=== PATIENT | male | born 1970 | race Asian ===

== ENCOUNTER 2020-08-12 05:23 | Inpatient (IN) | payer OTHER ==
[~2020-08-12] VITALS: Ht 172.7 cm; Wt 79.4 kg
[2020-08-12] VITALS (18 sets, daily range): BP systolic 123–179; BP diastolic 70–109
[~2020-08-12 05:23] MED LIST: METFORMIN HCL1000 M1 ORAL
[2020-08-12] MEDS ORDERED: Vancomycin 1gm vial IVPB ONE (06:35)
[2020-08-12] MEDS ORDERED: Thrombin 5000 units TOPIC ONE (06:35)
[2020-08-12] MEDS ORDERED: Gelfoam Size TOPIC ONE (06:35)
[2020-08-12] MEDS ORDERED: Bacitracin 50000 Units Vial ONE (06:35)
[2020-08-12] MEDS ORDERED: Rocuronium Bromide 50mg/5ml Inj IV ONE ×2 (06:38→07:00)
[2020-08-12] MEDS ORDERED: NS Irrig 1000ml IRRIG ONE (06:45)
[2020-08-12] MEDS ORDERED: Lidocaine 1% MPF 10mg/ml 5ml ONE (06:58)
[2020-08-12] MEDS ORDERED: Sodium Chloride 10ml vial INJ ONE (06:58)
[2020-08-12] MEDS ORDERED: Midazolam 2mg/2ml Inj IVP PRN (07:00)
[2020-08-12] MEDS ORDERED: Sterile Water Irrig 1000ml IRRIG ONE (07:00)
[2020-08-12] MEDS ORDERED: fentaNYL 100 mcg/2 mL IV PRN (07:00)
[2020-08-12] MEDS ORDERED: Labetalol 5mg/ml 20ml vial IV PRN (07:00)
[2020-08-12] MEDS ORDERED: Atropine Sulfate 0.4mg/ml inj IVP PRN (07:00)
[2020-08-12] MEDS ORDERED: Ketorolac 30mg Inj IV PRN ×2 (07:00)
[2020-08-12] MEDS ORDERED: HYDROcodone/Acetamin 5/325 tab ORAL PRN ×2 (07:00→12:00)
[2020-08-12] MEDS ORDERED: DiphenhydrAMINE 50mg/ml Inj IVP PRN (07:00)
[2020-08-12] MEDS ORDERED: HYDROcodone/Acetamin 7.5/325 tab ORAL PRN ×3 (07:00→12:00)
[2020-08-12] MEDS ORDERED: LR 1000ml ONE (07:00)
[2020-08-12] MEDS ORDERED: Acetaminophen (Non formulary) 100 ML IV ONE (07:00)
[2020-08-12] MEDS ORDERED: oxyCODONE HCL/Acetaminophen 5/325mg ORAL PRN (07:00)
[2020-08-12] MEDS ORDERED: propofoL 1,000mg/100ml IV ONE (07:00)
[2020-08-12] MEDS ORDERED: Hydromorphone 0.5mg/0.5ml inj IVP PRN (07:00)
[2020-08-12] MEDS ORDERED: LR 1000ml 1,000 ML IVLG SCH (07:00)
[2020-08-12] MEDS ORDERED: Meperidine 25mg/0.5ml Inj (FOR RIGORS ONLY) IV PRN (07:00)
[2020-08-12] MEDS ORDERED: ceFAZolin sod 2 GM in NS 55 ML IVPB ONE (07:00)
[2020-08-12] MEDS ORDERED: LORazepam Inj 2mg/ml 1ml IV PRN (07:00)
[2020-08-12] MEDS ORDERED: Metoclopramide 10mg/2ml Inj IVP PRN ×2 (07:00→12:00)
[2020-08-12] MEDS ORDERED: Lidocaine 1% Plain 30 ml INJ ONE ×2 (07:01→08:48)
[2020-08-12] MEDS ORDERED: fentaNYL 100 mcg/2 mL IV ONE (07:02)
--- NOTE | 2020-08-12 07:08 | Anethesia Preoperative Eval ---
Anesthesia Pre-op PMH/ROS General Date of Evaluation: Aug 12, 2020 Time of Evaluation: 07:01 Anesthesiologist: Peyton ASA Score: ASA 2 Mallampati Score Class I : Soft palate, uvula, fauces, pillars visible Class II: Soft palate, uvula, fauces visible Class III: Soft palate, base of uvula visible Class IV: Only hard plate visible Mallampati Classification: Class II Surgeon: Annette Diagnosis: Neck Pain Surgical Procedure: ADR C5-6, ACDF C6-C7 Anesthesia History: none Family History: no anesthesia problems Allergies: Coded Allergies: No Known Allergies (Unverified , 08/11/20) Medications: see eMAR Patient NPO?: Yes Past Medical History Cardiovascular: Reports: HTN Endocrine: Reports: DM Musculoskeletal/Integumentary: Reports: other - Gout PSxH Narrative: Graft To R Hand Anesthesia Pre-op Phys. Exam Physician Exam Last Vital Signs Date Time Temp Pulse Resp B/P (MAP) Pulse Ox O2 Delivery O2 Flow Rate FiO2 08/12/20 06:18 Room Air 08/12/20 06:05 96.8 63 18 128/86 (100) 99 Constitutional: NAD Neurologic: CN 2-12 intact Cardiovascular: RRR Respiratory: CTA Gastrointestinal: S/NT/ND Airway Exam Mallampati Score: Class II MO: full ROM: limited Teeth: missing, intact Anesthesia Pre-op A/P Labs Chemistry Test 08/12/20 05:59 POC Whole Blood Glucose 126 MG/DL (74-106) H Risk Assessment & Plan Assessment: ASA 2 Plan: GA, SED, GlideScope Status Change Before Surgery: No Pre-Antibiotics Dru Grams Ancef IV Given Within 1 Hr of Incision: Yes Time Given: 07:36 Santiago Todd MD Aug 12, 2020 07:08
--- NOTE | 2020-08-12 07:25 | Pre-Procedure Note/Attestation ---
Pre-Procedure Note/Attestation Complete Prior to Procedure Planned Procedure: not applicable Procedure Narrative: Cervical 56 artificial disc replacement and cervical 67 anterior cervical di scectomy and fusion Indications for Procedure Pre-Operative Diagnosis: herniation C56,67 Attestation I attest that I discussed the nature of the procedure; its benefits; risks and complications; and alternatives (and the risks and benefits of such alternatives), prior to the procedure, with the patient (or the patient's legal sales representative printing paper). I attest that, if there was a reasonable possibility of needing a blood transfusion, the patient (or the patient's legal sales representative printing paper) was given the [facility] standardized written summary, pursuant to the [place] Blood Safety Act ([place] Health and Safety Code # 1645, as amended). I attest that I re-evaluated the patient just prior to the surgery and that there has been no change in the patient's H&P, except as documented below: Noah Bryant MD Aug 12, 2020 07:25
--- NOTE | 2020-08-12 07:26 | Brief Operative Note ---
Immediate Post Operative Note Operative Note Chief Complaint: neck pain and radiculopathy Pre-op Diagnosis: herniation C56,67 Procedure: Cervical 56 artificial disc replacement and cervical 67 anterior cervical discectomy and fusion Post-op Diagnosis: same as pre-op Findings: consistent w/pre-op dx studies Surgeon: Annette Agriculture Mechanic: Chris Anesthesiologist: Peyton Anesthesia: general Specimen: none Complications: none Condition: stable Fluids: IVF Estimated Blood Loss: minimal Drains: none Implant(s) used?: Yes - prodisc c sz 5, nuvasive interlock c sz 6 [id number] Noah Bryant MD Aug 12, 2020 07:26
[2020-08-12] MEDS ORDERED: Glycopyrrolate 0.2mg/ml 1ml Vial ONE (08:19)
[2020-08-12] MEDS ORDERED: Neostigmine 1mg/ml 10ml Inj ONE (08:19)
--- NOTE | 2020-08-12 09:55 | Immediate Post-Op Evaluation ---
Immediate Post-Op Evalulation Immediate Post-Op Evalulation Procedure: C5-6, ACDF C6-C7 Date of Evaluation: Aug 12, 2020 Time of Evaluation: 10:05 IV Fluids: 1100 LR Blood Products: 0 Estimated Blood Loss: 75 Urinary Output: 300 Blood Pressure Systolic: 148 Blood Pressure Diastolic: 87 Pulse Rate: 73 Respiratory Rate: 16 O2 Sat by Pulse Oximetry: 100 Temperature (Fahrenheit): 97 Pain Score (1-10): 2 Nausea: No Vomiting: No Complications 0 Patient Status: awake, patent, extubated, none Hydration Status: adequate Dru Grams Ancef IV Given Within 1 Hr of Incision: Yes Time Given: 07:36 Santiago Todd MD Aug 12, 2020 09:55
--- NOTE | 2020-08-12 11:15 | NUR ---
NURSE NOTES: Patient received from PACU to room 320-2, via bed on O2 2L NC, in stable condition. Patient awakens to name, calm, oriented x4. Respirations even/unlabored. VSS. IV infusing to LAC, site asymptomatic. Urinal provided. Denies pain, SOB, NV. Anterior neck surgical site, dermabond, CDI, ice pack in place. Called RT for IS. Neuros intact, skin warm, wiggles, hand grasp right hand 3/5, left hand and bilateral feet (pedal pushes) 4/5. Encouraged CDB and ankle rotation. Oriented patient to room, medical equipment and surroundings (bed and call light). Reviewed post op orders, ice chips and water provided. Called for belongings. Called Dr. Smalls, reconciled home medications, diet and orders for glucose monitoring, see orders. Reviewed updated orders with patient, verbalized understanding. Bed in lowest position, call light in reach, will continue to monitor.
[2020-08-12] MEDS ORDERED: Milk of Magnesia 30ml Ud ORAL PRN (12:00)
[2020-08-12] MEDS ORDERED: Morphine Sulfate 4mg/ml Inj (IV USE ONLY) IV PRN ×2 (12:00)
[2020-08-12] MEDS ORDERED: Morphine Sulfate 2mg/ml Inj(IV/IM USE ONLY) IV PRN (12:00)
[2020-08-12] MEDS ORDERED: HYDROmorphone 1mg/ml Carpuject IVP PRN (12:30)
[2020-08-12] MEDS ORDERED: Naloxone 0.4mg/ml Inj IVP PRN (12:30)
[2020-08-12] MEDS ORDERED: NS w/KCl 20mEq 1000ml 1,000 ML IV SCH (13:00)
[2020-08-12] MEDS ORDERED: Chloraseptic Spray 20mL Bottle ORAL PRN (13:00)
--- NOTE | 2020-08-12 13:35 | NUR ---
NURSE NOTES: Dr. Smalls notified of blood pressure trending high (patient denies pain), readings reviewed, order received for Clonidine, administered as ordered, monitored BP, began to stabilize after patient voided (1,000 ml at once in urinal at bedside prior to ambulating in halls with PT), blood pressure checked by PT prior 144/100 and post 128/72. Will continue to monitor.
--- NOTE | 2020-08-12 13:45 | NUR ---
PT EVALUATION NOTE Patient seen for initial evaluation and treatment initiated. Patient presents with pain and impaired functional mobility s/p cervical surgery. Patient instructed in cervical spine precautions and proper log roll technique. Patient able to come to sitting at EOB and to transfer OOB with SBA. Patient able to ambulate 150 ft with SBA/CGA, no assistive device. Patient will benefit from skilled inpatient PT intervention to increase postural stability and overall strength for improved level of functional mobility and adherence to cervical spine precautions. Anticipate discharge home once medically cleared by MD. No DME needs identified at this time. Addendum: 08/12/20 at 1411 by RICHA HESS PT Amended: Links added.
--- NOTE | 2020-08-12 14:13 | General Progress Note ---
Subjective Allergies: Coded Allergies: No Known Allergies (Unverified , 08/11/20) Subjective asked to follow up postop Objective Last 24 Hour Vital Signs Date Time Temp Pulse Resp B/P (MAP) Pulse Ox O2 Delivery O2 Flow Rate FiO2 08/12/20 12:42 179/109 08/12/20 11:05 97.2 67 12 133/85 100 Nasal Cannula 3 08/12/20 10:50 68 15 137/96 100 Nasal Cannula 3 08/12/20 10:40 80 11 137/93 100 Nasal Cannula 3 08/12/20 10:25 68 12 137/98 100 Simple Mask 6 08/12/20 10:10 70 10 145/93 100 Simple Mask 6 08/12/20 10:00 68 10 139/100 100 Simple Mask 6 08/12/20 09:55 71 10 143/100 100 Simple Mask 6 08/12/20 09:55 73 16 100 08/12/20 09:51 97.0 78 27 148/87 100 Simple Mask 6 08/12/20 06:18 Room Air 08/12/20 06:05 96.8 63 18 128/86 (100) 99 Intake and Output 08/11/20 08/12/20 19:00 07:00 # Voids 1 Laboratory Tests 08/12/20 05:59: POC Whole Blood Glucose 126H 08/12/20 12:31: POC Whole Blood Glucose 164H Height (Feet): 5 Height (Inches): 8.00 Weight (Pounds): 175 Objective WDWN NAD clear breath sounds bilaterally without rhonchi or wheeze [id number] without MRG NABS nontender no HSM no CCE nonfocal Assessment/Plan Assessment/Plan: neck pain and radiculopathy herniation C56,67 Cervical 56 artificial disc replacement and cervical 67 anterior cervical discectomy and fusion PLAN 1. incentive spirometry 2. SCD 3. PT evaluation and therapy 4. Hydration 5. Pain management 6. discharge home seen earlier impression, plan, and exam edited and reviewed in detail care discussed with José Miguel Rick MD Aug 12, 2020 14:13
--- NOTE | 2020-08-12 14:34 | NUR ---
CASE MANAGEMENT: INITIAL REVIEW 50YR OLD MALE FROM HOME HERE FOR SCHEDULED SURGERY CC:NECK PAIN AND RADICULOPATHY SI: HERNIATED C5-6 AND 6-7 IS:IN SURGERY NOW CERVICAL 5-6; ARTIFICIAL DISC REPLACEMENT AND CERVICAL 6-7 ANTERIOR CERVICAL DISCECTOMY AND FUSION BG 164 \: 3E MED SURG UNIT DCP: HOME WHEN STABLE PLAN: Encourage incentive spirometry SCD PT evaluation and therapy IV Hydration Pain management Discharge home when stable
--- NOTE | 2020-08-12 14:53 | NUR ---
NURSE NOTES: Confirmed with Dr. Bryant, no soft cervical collar needed.
[2020-08-12] MEDS ORDERED: ceFAZolin sod 1 GM in D5W 55 ML IVPB SCH (15:30)
--- NOTE | 2020-08-12 15:56 | Diagnostic Imaging Report ---
. XRAY C Spine 2-3v CLINICAL HISTORY: Neck pain. COMPARISON: None FINDINGS: Fluoroscopy independent procedure performed for cervical fusion. 33.1 seconds of fluoroscopy time utilized by the ordering physician. Total cumulative dose is 2.79 mGy and 0.31368 Gy.cm2. Total of 3 spot images are obtained . IMPRESSION: FLUOROSCOPY GUIDED PROCEDURE.
[2020-08-12] MEDS ORDERED: NovoLOG Insulin Flexpen SUBQ SCH (16:30)
--- NOTE | 2020-08-12 16:55 | NUR ---
NURSE NOTES: Original prescription given to Bhavin (son), to take to patient's pharmacy to have it filled.
--- NOTE | 2020-08-12 17:00 | NUR ---
NURSE NOTES: Dr. Bryant and Dr. Smalls notified that patient is cleared by PT and would like to go home today, last BP at 1600 was 130/70, orders for discharge. Patient updated on orders, verbalized understanding.
--- NOTE | 2020-08-12 17:45 | Discharge Summary ---
DATE OF ADMISSION: 08/12/2020 DATE OF DISCHARGE: 08/12/2020 PROCEDURE PERFORMED DURING ADMISSION: Artificial disc at C5-C6, fusion at C6-C7. REASON FOR ADMISSION: Herniation, C5-C6, C6-C7. HOSPITAL COURSE/TREATMENT RENDERED: DISCHARGE PHYSICAL EXAMINATION: 1. Patient was ambulating with and without the assistance of physical therapy. 2. Prior to discharge home incision was clean and dry with minimal swelling. 3. Follows commands. 4. Alert and oriented. 5. Mathew discontinued, voiding. 6. Incentive spirometer at bedside. 7. IVF hep locked. MOTOR: Demonstrates expected postoperative bulk and tone. Moves biceps, triceps, and deltoid musculature on command. Moves hip flexors, quadriceps, tibialis anterior, EHL, gastrocsoleus musculature on command as well. TREATMENT RENDERED: 1. Daily nursing care. 2. Physical Therapy. 3. Occupational Therapy. 4. Intravenous medications. 5. Oral medications. 6. Daily postoperative examinations by Spine surgery team. CONDITION OF PATIENT ON DISCHARGE: The condition on discharge is stable for discharge to home. DISCHARGE INSTRUCTIONS: Our specific instructions relating to physical activity, medications diet and follow-up care are detailed in our standard operative folder and were given to this patient prior to surgery. We will however summarize these briefly as stated below. Regarding physical activity we would like the patient to limit their flexion, extension and rotation. We also require a limitation on their bending lifting and twisting. All medication has been called in prior to surgery to their pharmacy of choice. They can resume their regular diet once tolerated. We would like them to shower and limit soaking the wound in a tub/Jacuzzi/the ocean for a period of one month or until the incision is completely healed. We will have them follow up in our office in three weeks time for their regularly scheduled appointment. They understand to call our office tomorrow to schedule the time for their three week followup appointment. The patient will notify us should they experience any increase in the severity of pain, redness/swelling/ or drainage from their Incision. Noah Bryant M.D. DR: SAMRA JOB#: [id number] CC:
[2020-08-12] MEDS ORDERED: NORCO 10-325 T1 EACH ORAL (17:47)
[2020-08-12] MEDS ORDERED: SOMA350 MG PO (17:50)
[2020-08-12] MEDS ORDERED: metFORMIN 500mg tab ORAL SCH (18:00)
[2020-08-12] MEDS ORDERED: Docusate 100mg cap ORAL SCH (18:00)
--- NOTE | 2020-08-12 18:45 | NUR ---
NURSE NOTES: Discharge instructions reviewed with patient, verbalized understanding. IV (LAC) discontinued, no active bleeding. All belongings, films and discharge instructions given to patient. Prescription was filled at patient's pharmacy and son picked it up. Patient ambulated down to [facility], with Kaylah FRANCO, in stable condition. ID bracelet removed. Discharged home at 1845.
--- NOTE | 2020-08-12 20:29 | Operative Note - Dictated ---
DATE OF OPERATION: 08/12/2020 SURGEON: Noah Bryant MD, Orthopaedic Spine Surgeon. BUSINESS SYSTEMS MANAGER: Susan Perez PA-C. PREOPERATIVE DIAGNOSES: 1. Intractable neck pain. 2. Radiculopathy. 3. Herniation, C5-C6 and C6-C7. 4. Neural foraminal stenosis, C5-C6 and C6-C7. 5. Stenosis. POSTOPERATIVE DIAGNOSES: 1. Intractable neck pain. 2. Radiculopathy. 3. Herniation, C5-C6 and C6-C7. 4. Neural foraminal stenosis, C5-C6 and C6-C7. 5. Stenosis. PROCEDURE PERFORMED: 1. Anterior cervical discectomy and artificial disc replacement of C5-C6 using Synthes ProDisc C size 5 height. 2. Anterior cervical discectomy and fusion of C6-C7 using NuVasive Cervical Interbody cage size 6 with 1 mL of Osteocel allograft bone and three screws of 13 mm length. 3. Use of intraoperative microscope. 4. Motor-evoked potential monitoring. 5. Somatosensory-evoked potential monitoring. 6. Supervision and interpretation of fluoroscopy. COMPLICATIONS: None. ANESTHESIA: General. ESTIMATED BLOOD LOSS: Less than 100 mL. INDICATIONS FOR SURGERY: This patient is a 50-year-old male who has a history of diagnoses as listed above. As of result of this, the patient sustained intractable neck pain, radiculopathy, herniation of C5-C6 and C6-C7, neural foraminal stenosis of C5-C6 and C6-C7, and stenosis. We tried a course of conservative management, but despite this course, there was still a significant component of persistent, recalcitrant neck pain and arm pain. The MRI demonstrated significant neural foraminal compromise secondary to disc herniations at C5-C6 and C6-C7. We had a long discussion with Nelson regarding the risks and benefits of surgery. Our discussion included, but was not limited to nonoperative management, chiropractic management, another epidural steroid injection as well as definitive management in the form of surgery. We recommended an artificial disc replacement of cervical C5-C6 and anterior cervical discectomy and fusion of cervical C6-C7, as final definitive management. We reviewed the risks and benefits of surgery with the patient. Our discussion included a comprehensive review of the clinical issues and the nature of the clinical decision. We reviewed the alternatives, including doing nothing. The patient elected to proceed accordingly with an artificial disc replacement of cervical C5-C6 and anterior cervical discectomy and fusion of cervical C6-C7. We had a long discussion regarding the risks, alternatives, and benefits of surgery. Our description of the risks included a discussion in person as well as a signed consent, which detailed all pertinent risks from the procedure itself. Briefly, our discussion included but was not limited to infection, bleeding, pseudarthrosis, spinal cord injury, neurovascular injury, dural tear, CSF leak, neuropathy, paralysis, permanent weakness/drop foot/drop arm, paresthesias, blindness, palsy, and weakness. The patient understood there may be a need for a revision surgery or additional procedures. Approach-related complications including dysphonia, dysphagia, blindness, permanent vocal cord and neural injury, hematoma, swallowing and breathing difficulty. Medical complications were reviewed including liver, kidney, shock, cardiopulmonary failure, anesthesia complications including , swelling, damage to the musculature, larynx/voice injury or loss, esophagus/throat, trachea, blood vessels and muscles/muscular sprain and lungs/pneumothorax during this surgical procedure; injury to deeper structures may be temporary or permanent. After this review of risks, the patient understood these and elected to proceed. A written and verbal consent was given. We discussed the pros and cons of all the alternatives. We discussed the uncertainties associated with the decision. Afterwards, I assessed the patient's understanding and explored their preferences. All questions were answered and no guarantees were given. Medical clearance was obtained prior to surgery. INTRAOPERATIVE FINDINGS: C5-C6; there was a clear definite tear within the posterior longitudinal ligament. Through this tear, I noticed a nuclear fragment, which had migrated posteriorly and was encroaching the neural foramina itself causing severe stenosis on the left more than the right side. The disc itself was soft and appeared well hydrated. There was an anterior spur of the C5 inferior endplate, but otherwise the disc appeared soft and spongy with no evidence of any degenerative process such as desiccated disc, which would be crumbled. C6-C7; demonstrated a disc, which was soft and well hydrated. There was a tear noticed on the posterior longitudinal ligament on the left side. Through this tear, there was a nuclear fragment, which was encroaching the left neural foramina. This was resected with a combination of Microsect 2-B and Kerrison 1 and 2 rongeurs to remove the stenosis, which was left more than the right side and was severe. This was noted through a tear in the posterior longitudinal ligament, which was approximately 10 degrees cephalad to caudad. DESCRIPTION OF PROCEDURE: Under the benefit of general endotracheal anesthesia and with the assistance of the entire operative team, the patient was moved from the gurney onto the operative table in the supine position. The head was secured and carefully positioned appropriately. Bilateral arms were secured with Gel Pads and foam and all bony prominences were padded. For the bilateral lower extremities, SCD and ALLY hose were placed for DVT prophylaxis. A surgical timeout was called, which corroborated our planned procedure of an artificial disc replacement of cervical C5-C6 and anterior cervical discectomy and fusion of cervical C6-C7. Preoperative antibiotics were administered within 30 minutes of the incision for antibiotic prophylaxis. Using lateral fluoroscopic radiography, the operative levels were delineated. Next, the wound was prepped and draped with chlorhexidine and sterile drapes. An incision was based on lateral fluoroscopy and we centered our incision at the C5-C6 and C6-C7 interspace and next, using a standard Cowan-José anterior-based approach, the incision was taken down through the skin and subcutaneous tissues until the vertebral bodies and their corresponding disc spaces were visualized. A needle was placed into the interspace to confirm placement of the operative interspace and we performed the remainder of procedure under microscopic visualization. Next, using a bipolar and Bovie cautery to ensure meticulous hemostasis, the longus colli was mobilized bilaterally and retractors were placed deep to the longus colli bilaterally to address retraction. Next, we turned our attention to the radical anterior discectomy. This was initially performed at C5-C6 first by using a 15 blade scalpel followed by narrow pituitaries and a Microsect 5-B curette was used to denude the endplate of all cartilaginous tissue. Next, using a [employer] AM8 drill bit, the vertebral endplates were denuded of all residual cartilage in a qkyq-ap-ijjh and dshvy-xm-kbako fashion, and ultimately the posterior uncinate joints bilaterally and posterior osteophytic lips and margins were carefully denuded until clear visualization of the posterior longitudinal ligament was possible. An endplate preparation was performed in the exact same fashion using an intervertebral gis software developer, sequential distraction was obtained throughout the disc space. We saw a tear/rent in the PLL and this was carefully mobilized and dissected using a Microsect 1-B curette until we visualized a discrete disc herniation with compression of the spinal cord as well as neural foramina, which was left more than right sided. This neural foraminal compression was carefully resected using a Kerrison-1 and Kerrison-2 rongeurs until complete decompression of the spinal cord was visualized and complete decompression of the neural foramina and nerve root therein as well as the axilla and lateral margin of the nerve root was visualized and subsequently completely decompressed. The family was notified at one-hour intervals throughout the procedure to provide for consistent updates. We next turned our attention towards trialing our implant within the disc space. We initially tried size 5 and this ProDisc Cervical spacer fit well in regard to depth and width. This implant was opened and prepared. Next, under direct visualization, I confirmed excellent fit in respect to the anterior and posterior vertebral bodies, the uncinate joints, and in regard to toggle. Once satisfied with this placement on serial AP and lateral fluoroscopy, I turned my attention towards cutting our bryce. These were cut in the bones using a reciprocating drill and afterwards all free fragments of bone were irrigated. Next, FloSeal was placed into the interspace, then removed in its entirety and the implant was inserted using fluoroscopic guidance. Next, the Synthes ProDisc C size 5 ADR was then carefully advanced and secured into the intervertebral space under direct visualization and with supervision of AP and lateral fluoroscopic views. I next turned my attention towards the radical anterior discectomy. This was then performed at cervical C6-C7 first by using a 15 blade scalpel followed by narrow pituitaries and a Microsect 5-B curette was used to denude the endplate of all cartilaginous tissue. Next, using a [employer] AM8 drill bit, the vertebral endplates were denuded of all cartilaginous tissue in a upqz-ur-vzhq and lwzzs-ao-ugeti fashion, and ultimately the posterior uncinate joints bilaterally and posterior osteophytic lips and margins were carefully denuded until wide and thorough visualization of the posterior longitudinal ligament was possible. At this level, the endplate preparation was performed in the exact same fashion using an intervertebral gis software developer, sequential distraction was obtained throughout the disc space. We saw a tear/rent in the PLL and this was carefully mobilized and dissected using a Microsect 1-B curette until we visualized an obvious disc herniation with compression of the spinal cord as well as neural foramina, which was left more than right sided. This neural foraminal compression was carefully resected using a Kerrison-1 and Kerrison-2 rongeurs until complete decompression of the spinal cord was visualized and complete decompression of the neural foramina and nerve root therein as well as the axilla and lateral margin of the nerve root was visualized and subsequently completely decompressed. We next turned our attention towards trialing our implant within the disc space. We initially tried size 5 and afterwards size 6 trial from the NuVasive Cervical Interbody cage system at each level, which appeared to be appropriate under AP and lateral fluoroscopy as well as in terms of its height, depth, width, and lack of toggle. The PEEK (polyetheretherketone) interbody cages were then both packed with allograft bone from Osteocel and local autograft bone matrix. Next, these were then carefully advanced and secured into their intervertebral spaces under direct visualization and with supervision of AP and lateral fluoroscopic views. We next turned our attention towards plating. Plating was performed at each level with the NuVasive Interlock-C plating system. A total of three screws, size 13 mm in length were inserted and confirmed under AP and lateral fluoroscopy and confirmed to be in excellent position. After a finger sweep, we confirmed removal of all sponges. The retractor was removed and we next turned our attention to meticulous hemostasis with FloSeal and bipolar cautery. After the sponge and needle count was again found to be correct with our second count, we next turned our attention to closure. The wound was again copiously irrigated with antibiotic-impregnated saline. Closure consisted of 4-0 clear nylon for the platysma, and 5-0 clear nylon for the superficial skin. Final skin closure and dressings consisted of Dermabond. Prior to final closure, a final radiograph was obtained, which demonstrated the hardware was intact with excellent position throughout. The patient tolerated the procedure well. The patient was carefully extubated after the conclusion of surgery. We discussed the findings of the surgery with the family upon completion of the case. At this point, the patient was transferred to the spine floor for further observation. Noah Bryant M.D. DR: Florence JOB#: [id number] CC:
[2020-08-13 08:45] VITALS: BP 118/76
--- NOTE | 2020-08-13 08:45 | 48 Hour Post Anesthesia Eval ---
Post Anesthesia Evaluation Procedure: C5-6, ACDF C6-C7 Date of Evaluation: Aug 12, 2020 Time of Evaluation: 15:35 Blood Pressure Systolic: 118 0: 76 Pulse Rate: 68 Respiratory Rate: 20 Temperature (Fahrenheit): 97.6 O2 Sat by Pulse Oximetry: 98 Airway: patent Nausea: No Vomiting: No Pain Intensity: 2 Hydration Status: adequate Cardiopulmonary Status: stable Mental Status/LOC: patient returned to baseline Follow-up Care/Observations: n/a Post-Anesthesia Complications: none Follow-up care needed: ready to discharge Korey Sheets MD Aug 13, 2020 08:45
== END 2020-08-12 18:50 | disposition home or self-care (01) | DRG 473 ==
LOC: SDSOVERFLO 05:23 → 3E 11:15
DX: M50.122 Cervical disc disorder at C5-C6 level with radiculopathy (principal); V89.2XXS Person injured in unspecified motor-vehicle accident, traffic, sequela; M48.02 Spinal stenosis, cervical region
CPT/HCPCS: 36415; 72040; 76000; 82962; 86850; 86900; 86901; 87081; J1815; J2405; J2710; U0002